=== PATIENT | male | born 1965 | race Caucasian/White ===

== ENCOUNTER 2021-07-18 15:20 | Emergency (ER) | payer SELFPAY ==
[2021-07-18 15:26] VITALS: BP 145/94; PULSE 99; TEMP 98.7; BMI 33.0
== END 2021-07-18 17:29 | disposition home or self-care (01) ==
LOC: FER 15:20
DX: M71.22 Synovial cyst of popliteal space [Baker], left knee (principal); I80.9 Phlebitis and thrombophlebitis of unspecified site
CPT/HCPCS: 93971-TC; 99284-25